=== PATIENT | male | born 1995 | race Caucasian/White ===

== ENCOUNTER 2020-02-13 12:43 | Emergency (ER) | payer OTHER, SELFPAY ==
--- NOTE | 2020-02-13 | XR_ITS ---
EXAMINATION: XR CHEST CLINICAL INFORMATION: Chest pain COMPARISON: Chest x-ray 05/22/2009 TECHNIQUE: 2 views of the chest were obtained. FINDINGS: Cardiac silhouette is normal in size. The lungs are well aerated. There is no lobar consolidation. No pleural effusion or pneumothorax. Ill-defined 1.2 cm nodular density projecting over the left midlung is nonspecific but most suggestive of atelectasis. No acute osseous abnormality. XR/XR chest 2V IMPRESSION: No acute pulmonary pathology. Suspected subtle left midlung atelectasis. Recommend follow-up imaging to ensure resolution.
--- NOTE | 2020-02-13 | ECG_ITS ---
Test Reason : CHEST PAIN Blood Pressure : / mmHG Vent. Rate : 086 BPM Atrial Rate : 086 BPM P-R Int : 140 ms QRS Dur : 086 ms QT Int : 350 ms P-R-T Axes : 029 000 014 degrees QTc Int : 418 ms Normal sinus rhythm Normal ECG When compared with ECG of 03-AUG-2015 15:54, No significant change was found Referred By: Generic ED Physician Electronically Signed By:MITCHELL SOLORZANO MD
[2020-02-13 14:10] VITALS: BP 141/82; PULSE 92; RESP 18; TEMP 36.6; O2SAT 97; BMI 45.9
[2020-02-13 14:32] LABS: MANUAL DIFF FLAG NO
[2020-02-13 14:35] LABS: Basophils Percent Auto 0.2 % (0-2); Eosinophils Absolute Auto 0.1 X10*3/uL (0.0-0.4); Hematocrit 53.8 % (42-52); Hemoglobin 17.7 g/dl (14.0-18.0); Imm Gran Abs Auto 0.03 X10*3/uL (0.00-0.03); Imm Gran Pct Auto 0.6 % (0.0-0.4); Lymphocytes Absolute Auto 1.3 X10*3/uL (1.2-4.9); Lymphocytes Percent Auto 27.7 % (20-40); Mean Corpuscular HGB Conc 32.9 g/dl (31.0-36.0); Mean Corpuscular Hemoglobin 26.5 pg (27.0-33.0); Mean Corpuscular Volume 80.4 fL (80-98); Mean Platelet Volume 10.4 fL (9.4-12.4); Monocytes Absolute Auto 0.5 X10*3/uL (0.1-1.2); Monocytes Percent Auto 9.6 % (2-11); Neutrophils Absolute Auto 2.9 X10*3/uL (2.0-8.3); Neutrophils Percent Auto 60.9 % (45-73); Platelet Count 212 X10*3/uL (160-400); Red Blood Count 6.69 X10*6/uL (4.60-5.80); Red Cell Distribution Width 14.5 % (11.0-16.0); White Blood Count 4.8 X10*3/uL (4.8-10.8)
[2020-02-13 14:54] LABS: Anion Gap 14 (12-20); Blood Urea Nitrogen 17 mg/dL (9-16); Calcium 8.9 mg/dL (8.4-10.2); Carbon Dioxide 25 mmol/L (22-29); Chloride 105 mmol/L (96-108); Estimated Glomerular Filt Rate > 60; Glucose Random 91 mg/dL (60-115); Potassium 4.5 mmol/l (3.3-5.1); Sodium 139 mmol/L (135-145)
[2020-02-13 15:01] LABS: Troponin-I High Sensitivity < 3.5 ng/L (<3.5-35.0)
--- NOTE | 2020-02-13 15:40 | ED.CHESTPAIN ---
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 Chest pain now is 2/10. Risk Factors Coronary artery disease risk factors: none Thoracic aortic dissection risk factors: none Related Data Allergies Allergy/AdvReac Type Severity Reaction Status Date / Time amoxicillin [AMOXICILLIN] Allergy Unknown HIVES Unverified 12/16/19 16:26 Review of Systems Review of Systems: All other systems are reviewed and are negative Constitutional: Reports as per HPI and Reports no additional constitutional complaints Eyes: Reports as per HPI and Reports no additional eye complaints Reports system reviewed and no additional complaints, except as documented Cardiovascular: Reports as per HPI and Reports no additional cardiovascular complaints Respiratory: Reports as per HPI and Reports no additional respiratory complaints Gastrointestinal: Reports as per HPI and Reports no additional gastrointestinal complaints Genitourinary: Reports no additional female genitourinary complaints Musculoskeletal: Reports no additional musculoskeletal complaints Skin/Breast: Reports system reviewed and no additional complaints, except as docu Psychiatric: Reports no additional psychiatric complaints Endocrine: Reports no additional endocrine complaints Hematologic/Lymphatic: Reports no additional hematologic/lymphatic complaints Allergic/Immunologic: Reports no additional allergic/immunologic complaints Reports system reviewed and no additional complaints, except as documented and Reports Abnormal speech present [facility] Past Medical History Medical History Asthma Social History Social History Alcohol intake: unknown Smoking Status: Former smoker Smoked in Last 30 Days: No Use of substances other than those prescribed or required for medical reasons: No Advance Directives: No Advance Directives Information Provided: No Physical Exam Vital Signs: Vital Signs: Last Vital Signs Temp 97.9 F 11/15/20 14:10 Pulse 92 02/13/20 14:10 Resp 18 02/13/20 14:10 BP 141/82 H 02/13/20 14:10 Pulse Ox 97 02/13/20 14:10 Body Mass Index 45.9 Vital signs have been reviewed as normal and appeared to be correct. Blood pressure normal. Heart rate normal. Respiration rate normal. Temperature normal. Oxygen saturation normal. Appearance: Alert. Oriented X3. No acute distress. Head: Normal external exam. Normocephalic. Atraumatic. No Rapp signs noted. No raccoon eyes noted Eyes: PERRLA. EOMI. Conjunctiva and sclera normal. Eyelids normal. ENT: EAC normal. TM's Normal. Pharynx normal. Uvula midline. Moist mucous membranes. No trismus noted. No drooling noted. No muffled voice noted. Neck: Normal inspection. Neck supple. FROM. No adenopathy. Thyroid Normal. No meningeal signs. No neck mass noted. CVS: Normal heart rate and rhythm. Heart sound normal. No murmurs noted. Pulses normal throughout. Respiratory: No respiratory distress. Painless inspiration. Breath sounds normal. No wheezes/rales/rhonchi noted. Chest nontender. No accessory muscle usage noted or decreased air movement noted. Abdomen: Soft and nontender. Bowel sounds normal in all 4 quadrants. No distention noted. No organomegaly noted. No visible injury noted. Back: No CVA tenderness. Full range of motion noted. Skin: Skin warm and dry. Normal skin color. Normal skin turgor. No rashes/lesions/lacerations noted. Extremities: No lower extremity edema. Extremities exhibit normal range of motion. Extremities nontender. Neuro: Oriented X 3. No motor deficit. No sensory deficit. Reflexes normal. MDM - Chest Pain MDM Narrative Medical decision making narrative: Assessment and plan. 24-year-old male presented with chest pain since 09:00 o'clock in the morning patient with HEART SCORE 0 negative troponin, patient also have no risk factor for PE patient has unremarkable chest x-ray. Pain appears to be muscular in origin. Will reassure the patient and discharge use NSAIDs if needed for pain. Lab Data Result diagrams: 02/13/20 14:26 02/13/20 14:26 Labs: Lab Results 11/15/20 11/15/20 11/15/20 Range/Units 14:26 14:26 14:26 WBC 4.8 (4.8-10.8) X10*3/uL RBC 6.69 H (4.60-5.80) X10*6/uL Hgb 17.7 (14.0-18.0) g/dl Hct 53.8 H (42-52) % MCV 80.4 (80-98) fL MCH 26.5 L (27.0-33.0) pg MCHC 32.9 (31.0-36.0) g/dl RDW 14.5 (11.0-16.0) % Plt Count 212 (160-400) X10*3/uL MPV 10.4 (9.4-12.4) fL Immature Gran % (Auto) 0.6 H (0.0-0.4) % Neut % (Auto) 60.9 (45-73) % Lymph % (Auto) 27.7 (20-40) % [place] % (Auto) 9.6 (2-11) % Eos % (Auto) 1.0 (0-4) % Baso % (Auto) 0.2 (0-2) % Lymph # (Auto) 1.3 (1.2-4.9) X10*3/uL [place] # (Auto) 0.5 (0.1-1.2) X10*3/uL Eos # (Auto) 0.1 (0.0-0.4) X10*3/uL Baso # (Auto) 0.0 (0.0-0.2) X10*3/uL Abs Immat Gran (auto) 0.03 (0.00-0.03) X10*3/uL Absolute Neuts (auto) 2.9 (2.0-8.3) X10*3/uL Absolute Nucleated RBC 0.000 (0.0-0.012) X10*3/uL Nucleated RBC % (auto) 0.0 (0.0-0.2) /100WBC Sodium 139 (135-145) mmol/L Potassium 4.5 (3.3-5.1) mmol/l Chloride 105 (96-108) mmol/L Carbon Dioxide 25 (22-29) mmol/L Anion Gap 14 (12-20) BUN 17 H (9-16) mg/dL Creatinine 0.98 (0.5-1.4) mg/dL Estim Creat Clear Calc 166.0 Estimated GFR > 60 Random Glucose 91 (60-115) mg/dL Calcium 8.9 (8.4-10.2) mg/dL Troponin I High Sens < 3.5 (<3.5-35.0) ng/L Imaging Data Chest x-ray: Radiologist's impression: No acute intrathoracic pathology. ECG Data ECG #1: Interpretation: Normal sinus rhythm at 86 beats per minutes, normal intervals, no ST-T ischemic changes. Discharge Plan Discharge Clinical Impression: Chest pain Patient Disposition: Home, Self-Care Instructions: Chest Pain (ED) Referrals: Maury Kennedy MD [Primary Care Provider] - 2 days
[2020-02-13 15:51] VITALS: BP 139/80; PULSE 77; RESP 12; TEMP 36.6; O2SAT 100
== END 2020-02-13 16:44 | disposition home or self-care (01) ==
PROVIDERS: Emergency Provider Emergency Medicine; PCP Internal Medicine Medical Oncology
DX: R07.9 Chest pain, unspecified (principal); Z87.891 Personal history of nicotine dependence
CPT/HCPCS: 36415; 71046; 80048; 84484; 85025; 93005; 99284

== ENCOUNTER 2020-03-02 08:05 | Outpatient (REF) | payer OTHER, SELFPAY ==
[2020-03-02 09:51] LABS: MANUAL DIFF FLAG NO
[2020-03-02 09:55] LABS: Basophils Percent Auto 0.3 % (0-2); Eosinophils Absolute Auto 0.2 X10*3/uL (0.0-0.4); Eosinophils Percent Auto 2.5 % (0-4); Hematocrit 49.7 % (42-52); Hemoglobin 16.3 g/dl (14.0-18.0); Imm Gran Abs Auto 0.01 X10*3/uL (0.00-0.03); Imm Gran Pct Auto 0.1 % (0.0-0.4); Lymphocytes Absolute Auto 2.8 X10*3/uL (1.2-4.9); Lymphocytes Percent Auto 41.1 % (20-40); Mean Corpuscular HGB Conc 32.8 g/dl (31.0-36.0); Mean Corpuscular Hemoglobin 26.7 pg (27.0-33.0); Mean Corpuscular Volume 81.3 fL (80-98); Mean Platelet Volume 10.7 fL (9.4-12.4); Monocytes Absolute Auto 0.5 X10*3/uL (0.1-1.2); Monocytes Percent Auto 7.7 % (2-11); Neutrophils Absolute Auto 3.3 X10*3/uL (2.0-8.3); Neutrophils Percent Auto 48.3 % (45-73); Platelet Count 298 X10*3/uL (160-400); Red Blood Count 6.11 X10*6/uL (4.60-5.80); Red Cell Distribution Width 14.2 % (11.0-16.0); White Blood Count 6.8 X10*3/uL (4.8-10.8)
[2020-03-02 10:29] LABS: Alanine Aminotransferase 30 U/L (0-40); Albumin Level 4.3 g/dL (3.5-5.0); Alkaline Phosphatase 74 U/L (39-117); Anion Gap 11 (12-20); Aspartate Amino Transferase 18 U/L (5-37); Bilirubin Total 0.5 mg/dL (0.0-1.0); Blood Urea Nitrogen 14 mg/dL (9-16); Calcium 9.2 mg/dL (8.4-10.2); Carbon Dioxide 29 mmol/L (22-29); Chloride 105 mmol/L (96-108); Cholesterol 128 mg/dL; Estimated Glomerular Filt Rate > 60; Glucose Fasting 90 mg/dL (60-99); HDL Cholesterol 35 mg/dL; LDL Cholesterol Calculated 75 mg/dl; Potassium 4.4 mmol/l (3.3-5.1); Sodium 141 mmol/L (135-145); Total Protein 7.4 g/dL (6.5-8.0); Triglycerides 90 mg/dL
[2020-03-02 10:43] LABS: HIV AB/AG Nonreactive (Nonreactive); HIV Num 1 0.21 S/CO (0.00-0.99)
[2020-03-02 10:50] LABS: Prostate Specific Antigen 0.18 ng/mL (<0.05-4.0)
[2020-03-03 04:05] LABS: Syphilis Screen Nonreactive (Nonreactive)
== END 2020-03-02 08:06 | disposition home or self-care (01) ==
LOC: HO.LAB 08:05
PROVIDERS: PCP Internal Medicine Medical Oncology; Visit Provider Internal Medicine Medical Oncology
DX: E66.01 Morbid (severe) obesity due to excess calories (principal); Z20.6 Contact with and (suspected) exposure to human immunodeficiency virus [HIV]; Z20.2 Contact with and (suspected) exposure to infections with a predominantly sexual mode of transmission; Z77.21 Contact with and (suspected) exposure to potentially hazardous body fluids
CPT/HCPCS: 36415; 80053; 80061; 84153; 85025; 86780; 87389

== ENCOUNTER 2020-08-03 08:36 | Outpatient (REF) | payer OTHER, SELFPAY ==
[2020-08-04 13:52] LABS: H Pylori Breath Test NOT DETECTED (NOT DETECTED)
== END 2020-08-03 08:37 | disposition home or self-care (01) ==
LOC: CF 08:36
PROVIDERS: PCP Internal Medicine Medical Oncology; Visit Provider Surgery
DX: Z01.818 Encounter for other preprocedural examination (principal); E66.01 Morbid (severe) obesity due to excess calories; Z68.42 Body mass index [BMI] 45.0-49.9, adult
CPT/HCPCS: 83013

== ENCOUNTER → 2020-08-15 08:15 | Outpatient (BNVA) | payer OTHER, SELFPAY | PROVIDERS: PCP Internal Medicine Medical Oncology; Visit Provider Surgery ==

== ENCOUNTER → 2020-08-31 09:00 | Outpatient (BNVA) | payer OTHER, SELFPAY | PROVIDERS: PCP Internal Medicine Medical Oncology; Visit Provider Dietitian, Registered | DX: E66.01 Morbid (severe) obesity due to excess calories (principal); Z68.42 Body mass index [BMI] 45.0-49.9, adult | CPT/HCPCS: 97802 ==

== ENCOUNTER 2020-09-01 12:33 | Outpatient (REF) | payer OTHER, SELFPAY ==
--- NOTE | ~2020-09-01 | XR_ITS ---
EXAMINATION: XR CHEST CLINICAL INFORMATION: Shortness of breath COMPARISON: 02/13/2020 TECHNIQUE: 2 views of the chest were obtained. FINDINGS: Normal symmetric lung volumes. No parenchymal consolidation. No pleural effusion. No pneumothorax. Cardiomediastinal silhouette and pulmonary vascularity are within normal limits. No acute osseous abnormalities. XR/XR chest 2V IMPRESSION: Unremarkable examination.
--- NOTE | 2020-09-01 12:58 | ECG_ITS ---
Test Reason : R06.02 SOB Blood Pressure : / mmHG Vent. Rate : 077 BPM Atrial Rate : 077 BPM P-R Int : 140 ms QRS Dur : 090 ms QT Int : 382 ms P-R-T Axes : 014 013 030 degrees QTc Int : 432 ms Normal sinus rhythm Normal ECG When compared with ECG of 13-FEB-2020 12:51, No significant change was found Referred By: Veronica Newton Electronically Signed By:Ancelmo Mast
[2020-09-01 14:19] LABS: MANUAL DIFF FLAG NO
[2020-09-01 14:30] LABS: Basophils Percent Auto 0.3 % (0-2); Eosinophils Absolute Auto 0.2 X10*3/uL (0.0-0.4); Eosinophils Percent Auto 2.8 % (0-4); Hematocrit 48.7 % (42-52); Hemoglobin 16.5 g/dl (14.0-18.0); Imm Gran Abs Auto 0.01 X10*3/uL (0.00-0.03); Imm Gran Pct Auto 0.2 % (0.0-0.4); Lymphocytes Absolute Auto 1.8 X10*3/uL (1.2-4.9); Lymphocytes Percent Auto 29.7 % (20-40); Mean Corpuscular HGB Conc 33.9 g/dl (31.0-36.0); Mean Corpuscular Volume 82.5 fL (80-98); Mean Platelet Volume 10.4 fL (9.4-12.4); Monocytes Absolute Auto 0.5 X10*3/uL (0.1-1.2); Neutrophils Absolute Auto 3.5 X10*3/uL (2.0-8.3); Platelet Count 235 X10*3/uL (160-400); Red Cell Distribution Width 14.6 % (11.0-16.0)
[2020-09-01 14:40] LABS: Estimated Average Glucose 68 mg/dL
[2020-09-01 14:58] LABS: Alanine Aminotransferase 39 U/L (0-40); Albumin Level 4.3 g/dL (3.5-5.0); Alkaline Phosphatase 70 U/L (39-117); Anion Gap 14 (12-20); Aspartate Amino Transferase 37 U/L (5-37); Bilirubin Total 0.8 mg/dL (0.0-1.0); Blood Urea Nitrogen 12 mg/dL (9-16); C Reactive Protein 0.88 mg/dL (< or = 0.50); Calcium 9.3 mg/dL (8.4-10.2); Carbon Dioxide 24 mmol/L (22-29); Chloride 107 mmol/L (96-108); Cholesterol 123 mg/dL; Estimated Glomerular Filt Rate > 60; Glucose Fasting 83 mg/dL (60-99); HDL Cholesterol 45 mg/dL; Iron 75 mcg/dL (45-160); LDL Cholesterol Calculated 64 mg/dl; Percent Iron Saturation 22 % (15-50); Potassium 4.3 mmol/L (3.3-5.1); Sodium 141 mmol/L (135-145); Total Iron Binding Capacity 336 mcg/dL (228-428); Total Protein 7.2 g/dL (6.5-8.0); Triglycerides 74 mg/dL; Unsaturated Iron Binding 261 ug/dL
[2020-09-01 15:00] LABS: Thyroid Stimulating Hormone 1.63 uIU/mL (0.32-4.0); Vitamin D 25-OH Total 12.5 ng/mL (>30)
[2020-09-01 15:11] LABS: Vitamin B12 346 pg/mL (200-900)
[2020-09-04 14:12] LABS: Calcium (PTHI) 9.5 mg/dL (8.6-10.3); PTHI 33 pg/mL (14-64)
[2020-09-05 06:17] LABS: Zinc 74 mcg/dL (60-130)
[2020-09-06 19:47] LABS: Vitamin A 32 mcg/dL (38-98); Vitamin B1 7 nmol/L (8-30)
== END 2020-09-01 12:34 | disposition home or self-care (01) ==
LOC: HO.XRAY 12:33
PROVIDERS: PCP Internal Medicine Medical Oncology; Visit Provider Surgery
DX: Z01.818 Encounter for other preprocedural examination (principal); K91.2 Postsurgical malabsorption, not elsewhere classified; R06.02 Shortness of breath; Z90.3 Acquired absence of stomach [part of]
CPT/HCPCS: 36415; 71046; 80053; 80061; 82306; 82607; 83036; 83540; 83970; 84425; 84443; 84590; 84630; 85025; 86140; 93005

== ENCOUNTER → 2020-09-14 09:07 | Outpatient (BNVA) | payer OTHER, SELFPAY | PROVIDERS: PCP Internal Medicine Medical Oncology; Visit Provider Physician Assistant ==

== ENCOUNTER → 2020-09-25 08:04 | Outpatient (BNVA) | payer OTHER, SELFPAY | PROVIDERS: PCP Internal Medicine Medical Oncology; Visit Provider Dietitian, Registered | DX: E66.01 Morbid (severe) obesity due to excess calories (principal); Z68.42 Body mass index [BMI] 45.0-49.9, adult | CPT/HCPCS: 97803 ==

== ENCOUNTER → 2020-10-23 08:10 | Outpatient (BNVA) | payer OTHER, SELFPAY | PROVIDERS: PCP Internal Medicine Medical Oncology; Visit Provider Dietitian, Registered | DX: E66.9 Obesity, unspecified (principal); Z68.42 Body mass index [BMI] 45.0-49.9, adult | CPT/HCPCS: 97803 ==

== ENCOUNTER 2021-10-29 09:20 | Outpatient (REF) | payer OTHER, SELFPAY ==
[2021-10-29 09:47] LABS: MANUAL DIFF FLAG NO
[2021-10-29 10:38] LABS: Basophils Percent Auto 0.3 % (0-2); Eosinophils Absolute Auto 0.2 X10*3/uL (0.0-0.4); Eosinophils Percent Auto 2.5 % (0-4); Hematocrit 50.1 % (42.0-52.0); Hemoglobin 16.4 g/dl (14.0-18.0); Imm Gran Abs Auto 0.02 X10*3/uL (0.00-0.03); Imm Gran Pct Auto 0.3 % (0.0-0.4); Lymphocytes Absolute Auto 1.9 X10*3/uL (1.2-4.9); Lymphocytes Percent Auto 31.2 % (20-40); Mean Corpuscular HGB Conc 32.7 g/dl (31.0-36.0); Mean Corpuscular Hemoglobin 26.9 pg (27.0-33.0); Mean Corpuscular Volume 82.1 fL (80.0-98.0); Mean Platelet Volume 10.1 fL (9.4-12.4); Monocytes Absolute Auto 0.6 X10*3/uL (0.1-1.2); Monocytes Percent Auto 10.2 % (2-11); Neutrophils Absolute Auto 3.3 x10*3/uL (2.0-8.3); Neutrophils Percent Auto 55.5 % (45-73); Platelet Count 246 X10*3/uL (160-400); Red Cell Distribution Width 14.4 % (11.0-16.0)
[2021-10-29 11:02] LABS: Alanine Aminotransferase 35 U/L (0-40); Albumin Level 4.1 g/dL (3.5-5.0); Alkaline Phosphatase 64 U/L (39-117); Anion Gap 15 (12-20); Aspartate Amino Transferase 22 U/L (5-37); Bilirubin Total 0.4 mg/dL (0.0-1.0); Blood Urea Nitrogen 14 mg/dL (9-16); Calcium 8.8 mg/dL (8.4-10.2); Carbon Dioxide 24 mmol/L (22-29); Chloride 105 mmol/L (96-108); Estimated Glomerular Filt Rate > 60; Glucose Random 91 mg/dL (60-115); Potassium 4.5 mmol/L (3.3-5.1); Sodium 139 mmol/L (135-145); Total Protein 7.1 g/dL (6.5-8.0)
[2021-10-29 11:14] LABS: HBS Num1 12.35 mIU/mL (0-7.99); HBc Num1 0.11 S/CO (0.00-0.79); HBsAGNum1 0.24 S/CO (0.00-0.99); HIV AB/AG Nonreactive (Nonreactive); HIV Num 1 0.06 S/CO (0.00-0.99); Hepatitis B Core Antibody Nonreactive (Nonreactive); Hepatitis B Surface Antigen Negative (Negative); ~HepC Num1 0.09 S/CO (0.00-0.79); ~Hepatitis B Surface Antibody REACTIVE (Nonreactive); ~Hepatitis C Antibody Nonreactive (Nonreactive)
[2021-10-31 05:29] LABS: Hepatitis A Antibody IgM 0.17 Index (0-0.79); ~Hepatitis A Antibody IgM Nonreactive (Nonreactive)
== END 2021-10-29 09:21 | disposition home or self-care (01) ==
LOC: HO.LAB 09:20
PROVIDERS: PCP Internal Medicine Medical Oncology; Visit Provider Internal Medicine Medical Oncology
DX: Z11.4 Encounter for screening for human immunodeficiency virus [HIV] (principal); J45.909 Unspecified asthma, uncomplicated; R76.8 Other specified abnormal immunological findings in serum; Z20.6 Contact with and (suspected) exposure to human immunodeficiency virus [HIV]; Z77.21 Contact with and (suspected) exposure to potentially hazardous body fluids
CPT/HCPCS: 36415; 80053; 85025; 86704; 86706; 86709; 86803; 87340; 87389

== ENCOUNTER → 2023-08-04 08:58 | Outpatient (BNVA) | payer OTHER, SELFPAY | PROVIDERS: PCP Internal Medicine Medical Oncology; Visit Provider Physician Assistant Surgical ==

== ENCOUNTER 2023-09-26 08:57 | Outpatient (AMB) | payer OTHER, SELFPAY ==
--- NOTE | 2023-09-26 08:59 | MHC.OFFVISWM ---
VS Expanded 09/26/23 09:09 Height 5 ft 10 in Weight 336 lb BMI 48.2 Body Fat % 41.4 Body Fat Mass 139.2 Fat Free Mass 196.8 Visceral Fat Rating 25 Body Water % 43.5 Body Water Mass 146.2 Basal Metabolic Rate/Score 2,846 Intake Visit Reasons: TV Re-Est SWL BMI 48.2 *SEE COMMENTS* Allergies shellfish derived Allergy (Severe, Verified 09/26/23 08:59) Anaphylaxis amoxicillin [AMOXICILLIN] Allergy (Unknown, Verified 09/26/23 08:59) HIVES Medication List - Last Reconciled 09/26/23 by Charles Shore MD albuterol sulfate 90 mcg/actuation 2 puffs inhalation Q6H PRN dextroamphetamine-amphetamine 20 mg (Adderall) 20 mg PO BID emtricitabine-tenofovir (TDF) 200-300 mg (Truvada) 1 tab PO DAILY fexofenadine (Imelda Allergy) 180 mg PO DAILY lamotrigine 100 mg PO DAILY lurasidone (Latuda) 20 mg PO DAILY HPI HPI TV Re-Est SWL BMI 48.2 *SEE COMMENTS*: Details: Start time: 8.51am, End time: 9.31am ?I spent 35 minutes speaking with the patient on the phone plus an additional 5 minutes reviewing and updating records for a total of 40 minutes HPI Comments Details: Previous weight loss efforts: [facility] Wakes up: 6am or 10am, Sleeps: 11pm Breakfast: skips Lunch: 12pm (fast food) Dinner: 6-7pm (protein) Snacks: skips Exercise: none Fluids: Coffee/Tea: none, soda: (Coke or Sprite), juice: daily , ETOH: 1/month [facility] Medical History (Updated 09/26/23 @ 09:09 by Charles Shore MD) DJD (degenerative joint disease) Sleep apnea with use of continuous positive airway pressure (CPAP) Morbid obesity Depression Anxiety Bipolar disorder Asthma Surgical History Hx of wisdom tooth extraction Family History Mother No problems noted. Father Hypertension Obesity Brother No problems noted. Brother No problems noted. Brother No problems noted. Brother Obesity Sister Obesity Sister No problems noted. Sister No problems noted. Social History (Updated 08/04/23 @ 09:07 by Addie Miranda CMA) Alcohol intake: current Alcohol intake frequency: holidays/special occasions only Patient Tobacco Use Status: Never used Tobacco Telehealth Telehealth Telehealth Platform: Telephone Location of provider rendering services: practice address Location of patient: address on file Patient Identification confirmed using: Name, : Yes Telehealth method: voice only Patient verbally consented to treatment: Yes Patient verbally consented to billing insurance company: Yes Patient informed of any privacy concerns related to visit: Yes Minutes spent on Phone/Video with Pt.: 40 Assessment & Plan Assessment & Plan (1) Morbid obesity: Code(s): E66.01 - Morbid (severe) obesity due to excess calories Category: Medical Plan: 1.? Plan for lap sleeve gastrectomy. If diaphragmatic or ventral hernias are present at time of surgery, these will be repaired laparoscopically as well. Risks and complications include possible conversion to an open procedure, anastomotic leak, bleeding requiring transfusion, small bowel obstruction, , DVT and pulmonary embolism, cardiac, or pulmonary complications, as senior care complications such as anastomotic ulcer, insufficient weight loss and vitamin deficiencies. I emphasized the importance of close follow-up, adherence to instructions and good communication. 2. You will receive a link of our software taiwo to generate an individualized nutritional and exercise plan specific for you. Please send me a screenshot of the plans you will generate Meal to include lean meat (beef, fish, pork, turkey, chicken), or american yogurt, or egg whites, or beans with a salad with olive oil and fruits (berries, pears, apples, kiwi). Avoid salt, breads, potatoes, rice, pasta, desserts. ?3. If you choose shakes, each shake would be drunk slowly, like coffee in a period of 2 hours. ?4. If you choose bars, cut each bar in 4 pieces and eat each piece in 30min ?to make each bar last 2 hours. ?5. I emphasized the importance of measuring accurately the food portion and measure it when serving the food in plate ?6. The meal portions include a specific number of forks of meat and salad. You always eat the meat portion but you can replace up to half of salad/vegetables portion with rice, potatoes or pasta, or a fruit ?if you like. The less you do it the better weight loss will be. ?7. One full-size fork is what it can be scooped on the fork without falling aside and not what can be bit with the fork. Use regular forks like those you find in a typical restaurant. ?8.? Please send me weight measurements as soon as possible and then once a week. Always include your diet and exercise plan. 9. The best choice would be to purchase a stationary bike, elliptical or treadmill at home that can track calories. Let me know if you do so I can give you an exercise plan. ?10. Goal is to lose at least 1.5-2lbs per week ?11. Goal to lose 10% of your weight before surgery, which is about 33lbs. Ultimate weight goal: 303lbs before surgery 12. Please follow the diet plan exactly without any change. If you don't like something about the plan or you feel hungry you need to communicate with me so I can help you revise the plan. You should not change the plan yourself. 13. To be scheduled for EGD to assess the anatomy of the stomach. The possibility of biopsies was discussed. Patient needs to avoid use of NSAIDs and aspirin for 1 week prior to EGD. Risks of perforation and? bleeding was discussed with the patient. This will be an outpatient procedure with IV sedation. Orders: Orders Insulin Today E66.01 - Morbid (severe) obesity due to excess calories, G47.30 - Sleep apnea, unspecified, J45.909 - Unspecified asthma, uncomplicated Hemoglobin A1c Today E66.01 - Morbid (severe) obesity due to excess calories, G47.30 - Sleep apnea, unspecified, J45.909 - Unspecified asthma, uncomplicated C Reactive Protein Today E66.01 - Morbid (severe) obesity due to excess calories, G47.30 - Sleep apnea, unspecified, J45.909 - Unspecified asthma, uncomplicated Vitamin B1 Today E66.01 - Morbid (severe) obesity due to excess calories, G47.30 - Sleep apnea, unspecified, J45.909 - Unspecified asthma, uncomplicated TSH reflex Free T4 Today E66.01 - Morbid (severe) obesity due to excess calories, G47.30 - Sleep apnea, unspecified, J45.909 - Unspecified asthma, uncomplicated Vitamin D 25-OH Total Today E66.01 - Morbid (severe) obesity due to excess calories, G47.30 - Sleep apnea, unspecified, J45.909 - Unspecified asthma, uncomplicated ECG 12 lead EKG Today E66.01 - Morbid (severe) obesity due to excess calories, G47.30 - Sleep apnea, unspecified, J45.909 - Unspecified asthma, uncomplicated FL upper GI w air Today E66.01 - Morbid (severe) obesity due to excess calories, G47.30 - Sleep apnea, unspecified, J45.909 - Unspecified asthma, uncomplicated H Pylori Breath Test Today E66.01 - Morbid (severe) obesity due to excess calories, G47.30 - Sleep apnea, unspecified, J45.909 - Unspecified asthma, uncomplicated Complete Blood Count Auto Diff Today E66.01 - Morbid (severe) obesity due to excess calories, G47.30 - Sleep apnea, unspecified, J45.909 - Unspecified asthma, uncomplicated Lipid Panel Today E66.01 - Morbid (severe) obesity due to excess calories, G47.30 - Sleep apnea, unspecified, J45.909 - Unspecified asthma, uncomplicated IRON PROFILE Today E66.01 - Morbid (severe) obesity due to excess calories, G47.30 - Sleep apnea, unspecified, J45.909 - Unspecified asthma, uncomplicated Comprehensive Met. Panel Today E66.01 - Morbid (severe) obesity due to excess calories, G47.30 - Sleep apnea, unspecified, J45.909 - Unspecified asthma, uncomplicated Vitamin B12 and Folate Today E66.01 - Morbid (severe) obesity due to excess calories, G47.30 - Sleep apnea, unspecified, J45.909 - Unspecified asthma, uncomplicated Zinc Today E66.01 - Morbid (severe) obesity due to excess calories, G47.30 - Sleep apnea, unspecified, J45.909 - Unspecified asthma, uncomplicated Vitamin A Today E66.01 - Morbid (severe) obesity due to excess calories, G47.30 - Sleep apnea, unspecified, J45.909 - Unspecified asthma, uncomplicated Ferritin Today E66.01 - Morbid (severe) obesity due to excess calories, G47.30 - Sleep apnea, unspecified, J45.909 - Unspecified asthma, uncomplicated US abdomen comp w elastography Today E66.01 - Morbid (severe) obesity due to excess calories, G47.30 - Sleep apnea, unspecified, J45.909 - Unspecified asthma, uncomplicated XR chest 2V Today E66.01 - Morbid (severe) obesity due to excess calories, G47.30 - Sleep apnea, unspecified, J45.909 - Unspecified asthma, uncomplicated Referrals Nutrition/Dietitian Referral E66.01 - Morbid (severe) obesity due to excess calories, G47.30 - Sleep apnea, unspecified, J45.909 - Unspecified asthma, uncomplicated Behavioral Health Referral E66.01 - Morbid (severe) obesity due to excess calories, G47.30 - Sleep apnea, unspecified, J45.909 - Unspecified asthma, uncomplicated
[2023-09-26 09:09] VITALS: BMI 48.2
== END 2023-09-26 09:31 | disposition home or self-care (01) ==
LOC: HO.HBS 08:57
PROVIDERS: PCP Internal Medicine Medical Oncology; Visit Provider Surgery
DX: E66.01 Morbid (severe) obesity due to excess calories (principal); Z68.42 Body mass index [BMI] 45.0-49.9, adult
CPT/HCPCS: 99204

== ENCOUNTER → 2023-09-26 08:57 | Outpatient (BNVA) | payer OTHER, SELFPAY | PROVIDERS: PCP Internal Medicine Medical Oncology; Visit Provider Surgery ==

== ENCOUNTER 2023-10-06 10:24 | Outpatient (REF) | payer OTHER, SELFPAY ==
--- NOTE | ~2023-10-06 | XR_ITS ---
EXAMINATION: XR CHEST CLINICAL INFORMATION: Morbid, severe obesity due to excess calories. COMPARISON: 09/01/2020. TECHNIQUE: 2 views of the chest. FINDINGS: Dextroscoliosis of the thoracic spine. Heart size is normal. There is no gross pneumothorax. No pleural effusion. No focal consolidation. XR/XR chest 2V IMPRESSION: No evidence of pneumonia.
--- NOTE | 2023-10-06 10:29 | ECG_ITS ---
Test Reason : E66.01 - Morbid (severe) obesity due to excess calories Blood Pressure : / mmHG Vent. Rate : 071 BPM Atrial Rate : 071 BPM P-R Int : 158 ms QRS Dur : 088 ms QT Int : 396 ms P-R-T Axes : 010 -04 005 degrees QTc Int : 430 ms Normal sinus rhythm Normal ECG When compared with ECG of 01-SEP-2020 13:08, No significant change was found Referred By: Charles Shore Electronically Signed By:Ancelmo Mast
[2023-10-06 10:55] LABS: MANUAL DIFF FLAG NO
[2023-10-06 11:58] LABS: Basophils Percent Auto 0.3 % (0-2); Eosinophils Absolute Auto 0.1 X10*3/uL (0.0-0.4); Eosinophils Percent Auto 0.6 % (0-4); Hematocrit 54.3 % (42.0-52.0); Imm Gran Abs Auto 0.02 X10*3/uL (0.00-0.03); Imm Gran Pct Auto 0.2 % (0.0-0.4); Lymphocytes Absolute Auto 2.2 X10*3/uL (1.2-4.9); Lymphocytes Percent Auto 22.2 % (20-40); Mean Corpuscular HGB Conc 33.1 g/dl (31.0-36.0); Mean Corpuscular Hemoglobin 27.2 pg (27.0-33.0); Mean Platelet Volume 10.1 fL (9.4-12.4); Monocytes Absolute Auto 0.5 X10*3/uL (0.1-1.2); Monocytes Percent Auto 4.9 % (2-11); Neutrophils Absolute Auto 7.3 x10*3/uL (2.0-8.3); Neutrophils Percent Auto 71.8 % (45-73); Platelet Count 263 X10*3/uL (160-400); Red Blood Count 6.62 X10*6/uL (4.60-5.80); Red Cell Distribution Width 15.5 % (11.0-16.0); White Blood Count 10.1 X10*3/uL (4.8-10.8)
[2023-10-06 12:12] LABS: Estimated Average Glucose 71 mg/dL; Hemoglobin A1c % 4.1 % (<6.0)
[2023-10-06 12:44] LABS: Alanine Aminotransferase 37 U/L (0-40); Albumin Level 4.3 g/dL (3.5-5.0); Alkaline Phosphatase 63 U/L (39-117); Anion Gap 15 (12-20); Aspartate Amino Transferase 22 U/L (5-37); Bilirubin Total 0.8 mg/dL (0.0-1.0); Blood Urea Nitrogen 15 mg/dL (9-16); C Reactive Protein 0.21 mg/dL (< or = 0.50); Calcium 9.6 mg/dL (8.4-10.2); Carbon Dioxide 25 mmol/L (22-29); Chloride 103 mmol/L (96-108); Cholesterol 168 mg/dL (<200); Estimated Glomerular Filt Rate > 60; Glucose Random 87 mg/dL (60-115); HDL Cholesterol 52 mg/dL (>40); Iron 54 mcg/dL (45-160); LDL Cholesterol Calculated 105 mg/dL (<100); Percent Iron Saturation 17 % (15-50); Potassium 3.9 mmol/L (3.3-5.1); Sodium 139 mmol/L (135-145); Total Iron Binding Capacity 322 mcg/dL (228-428); Total Protein 8.2 g/dL (6.5-8.0); Triglycerides 59 mg/dL (<150); Unsaturated Iron Binding 268 ug/dL
[2023-10-06 13:05] LABS: Ferritin 172 ng/mL (20-250); TSH reflex Free T4 1.19 uIU/mL (0.32-4.0); Vitamin D 25-OH Total 12.2 ng/mL (>30)
[2023-10-06 13:07] LABS: Folate 4.4 ng/mL (> or = 4.0); Vitamin B12 1016 pg/mL (200-900)
[2023-10-06 13:24] LABS: Insulin 16 uU/mL (2-29)
[2023-10-09 02:49] LABS: Zinc 63 mcg/dL (60-130)
[2023-10-09 05:04] LABS: Vitamin A 39 mcg/dL (38-98)
[2023-10-10 15:33] LABS: Vitamin B1 9 nmol/L (8-30)
== END 2023-10-06 10:25 | disposition home or self-care (01) ==
LOC: HO.XRAY 10:24
PROVIDERS: PCP Internal Medicine Medical Oncology; Visit Provider Surgery
DX: E66.01 Morbid (severe) obesity due to excess calories (principal); G47.30 Sleep apnea, unspecified; J45.909 Unspecified asthma, uncomplicated; Z13.1 Encounter for screening for diabetes mellitus; Z13.89 Encounter for screening for other disorder
CPT/HCPCS: 36415; 71046; 80053; 80061; 82306; 82607; 82728; 82746; 83036; 83525; 83540; 84425; 84443; 84590; 84630; 85025; 86140; 93005

== ENCOUNTER → 2023-10-06 10:29 | Outpatient (BNV) | payer OTHER, SELFPAY | PROVIDERS: PCP Internal Medicine Medical Oncology; Visit Provider Internal Medicine Cardiovascular Disease | DX: E66.01 Morbid (severe) obesity due to excess calories (principal) | CPT/HCPCS: 93010 ==

== ENCOUNTER 2023-11-05 09:08 | Outpatient (AMB) | payer OTHER, SELFPAY ==
--- NOTE | 2023-11-05 09:08 | MHC.WMTHER ---
Intake Intake Visit Reasons: TV BH Intake Allergies shellfish derived Allergy (Severe, Verified 09/26/23 08:59) Anaphylaxis amoxicillin [AMOXICILLIN] Allergy (Unknown, Verified 09/26/23 08:59) HIVES [facility] Medical History (Updated 09/26/23 @ 09:09 by Charles Shore MD) DJD (degenerative joint disease) Sleep apnea with use of continuous positive airway pressure (CPAP) Morbid obesity Depression Anxiety Bipolar disorder Asthma Surgical History Hx of wisdom tooth extraction Family History Mother No problems noted. Father Hypertension Obesity Brother No problems noted. Brother No problems noted. Brother No problems noted. Brother Obesity Sister Obesity Sister No problems noted. Sister No problems noted. Social History (Updated 08/04/23 @ 09:07 by Addie Miranda CMA) Alcohol intake: current Alcohol intake frequency: holidays/special occasions only Patient Tobacco Use Status: Never used Tobacco Behavioral Health Assessment Weight Management Therapy Therapy Notes Details PT is a 28 year old Male who presents for BH intake as part of surgical weight loss program. Presenting Concerns Referral Source PT was referred to [facility] by his PCP. PT sees Dr. Puente at the program and had initial visit on August/2023. Reason for referral Completion of behavioral health assessment as part of process for weight-loss surgery. 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 No Satisfied with current living situation? Yes Comments Pt lives alone. Food/Weight/Diet Expectations of change PT wishes to be active, he noticing his body is hurting form being big. Anything close to 200 is fine with him. History/Relationship with food PT reports he is an emotional emoting, he binge eats and find a comfort with food. Patient reports his triggers are work-stress, feeling overwhelm, then food is to distract him from the stressor. PT states he is trying hard to stick to the meal plan provided by the doctor, however he has a hard time with consistency as he's used to not eat trough the day and then have a big meal. He has never been a breakfast eater person. Examples of meals before starting the program. Breakfast: skip. Lunch: berries or any take out at work ([employer], [employer]) Dinner: Mostly take out (fast food). Denies any snacks but drinks soda. Currently 2Lt in a day/regular soda. History/Relationship with weight PT states he has always been big. Coming from a [place] family, meals were -style with multiple carbs in a meal. Also, being chubby was related to how healthy people are. In last 5 years his lowest weight has been 270Lbs and the highest 360Lbs. Currently is 340Lbs. Doesn't remember when he was under 200Lbs. At 9 years old he was already over 200Lbs. The whole father's family side are big. Mom is overweight but father is big. History/Relationship with dieting Gym membership, did [employer] at the beginning of the year but got very sick so had to stop. [facility]- in 2020. Multiple diets, fasting, make himself trowing up. Binge Eating Do you frequently eat large amounts of food in short periods of time, not feeling physically hungry? Yes Do you feel out of control when you eat a large amount of food in a short period of time? Yes Do you eat large amounts of food rapidly and typically alone? Yes Night Eating Do you wake up at least once during the night to eat? No If you wake up in the night, do you find that it is necessary to eat something in order to fall back asleep? No Do you have little or no appetite in the morning and feel very hungry in the evening, often overeating between dinner and when you go to bed? No Social History Family history and relationship PT is single, never . 7 half siblings. He's not very close to his family. Relationship with his father is improving but not the best now with his mother. He's close to his maternal great-grandparents Parental/Familial wallpaper scraper obligations None. Developmental history and status Growing up he has learning issues but never got support as he found the answers to his academic issues later in life. Social support couple close friends, an aunt who went trough the program. Community support PCP, therapist. Quaker/Spirituality Family was Alevism but wasn't huge part of his life. None. Cultural/Ethnic information [place] heritage. Born and raised in [place]. Pt is bilingual. Legal Involvement and History Current or historical involvement with the legal system? None reported. Education Highest grade completed Associates degree in emergency medical services. Preferred learning style Verbal and Learn by doing Currently enrolled in educational program? Yes (Finishing his bachelors in healthcare administration. Will be done early 2024.) Interested in further educational program? Yes (Thinking in pursue a MARK.) Educational Interests/Skills Will like to continue in healthcare system. 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 ) Wants help to find employment? No Meaningful activities Ride motorcycle, hang out with friends. Mental Health and Addiction Treatment Psychiatric history PT reports he has a therapist. Has social-anxiety symptoms. This part will be assesed in next session. Assessment & Plan Assessment & Plan (1) Anxiety disorder, unspecified: Code(s): F41.9 - Anxiety disorder, unspecified Plan: PT will be seen again on 11/23 to finish assessment. Not cleared today. Telehealth Telehealth Telehealth Platform: [facility] Location of provider rendering services: other Location of patient: address on file Patient Identification confirmed using: Name, : Yes Telehealth method: video Patient verbally consented to treatment: Yes Patient verbally consented to billing insurance company: Yes Patient informed of any privacy concerns related to visit: No Minutes spent on Phone/Video with Pt.: 55 (9:00 - 9:55am) Coding Level of Care Code New Pt Tele Psy [place] ([id number]) Patient Type New Diagnoses Anxiety disorder, unspecified F41.9 Time Spent (min) 55 Comment 9:00 - 9:55am
== END 2023-11-05 09:58 | disposition home or self-care (01) ==
PROVIDERS: PCP Internal Medicine Medical Oncology; Visit Provider Counselor Mental Health
DX: F41.9 Anxiety disorder, unspecified (principal)
CPT/HCPCS: 90791

== ENCOUNTER → 2023-11-05 09:08 | Outpatient (BNVA) | payer OTHER, SELFPAY | PROVIDERS: PCP Internal Medicine Medical Oncology; Visit Provider Counselor Mental Health ==

== ENCOUNTER → 2023-12-03 09:47 | Day surgery (SDC) | payer OTHER, SELFPAY ==
--- NOTE | 2023-11-28 14:26 | HO.ANESPROP2 ---
HPI - Anesthesia Eval Consult details Narrative: 28yo M for Upper Endoscopy [facility] Active Problems Active Problems: All Active Problems Asthma (Acute) DJD (degenerative joint disease) (Acute) Sleep apnea with use of continuous positive airway pressure (CPAP) (Acute) Morbid obesity (Acute) Binge eating disorder (Acute) Bipolar 2 disorder, major depressive episode (Acute) Vitamin B1 deficiency (Acute) Vitamin A deficiency (Acute) Vitamin D deficiency (Acute) Morbid obesity due to excess calories (Acute) BMI 45.0-49.9, adult (Acute) Preoperative examination (Acute) Shortness of breath (Acute) Past Medical History Medical History (Updated 09/26/23 @ 09:09 by Charles Shore MD) DJD (degenerative joint disease) Sleep apnea with use of continuous positive airway pressure (CPAP) Morbid obesity Depression Anxiety Bipolar disorder Asthma Family History Family History Mother No problems noted. Father Hypertension Obesity Brother No problems noted. Brother No problems noted. Brother No problems noted. Brother Obesity Sister Obesity Sister No problems noted. Sister No problems noted. Surgical History Surgical History Hx of wisdom tooth extraction Social History Social History (Updated 08/04/23 @ 09:07 by Addie Miranda CMA) Alcohol intake: current Alcohol intake frequency: holidays/special occasions only Patient Tobacco Use Status: Never used Tobacco Meds Allergies Allergy/AdvReac Type Severity Reaction Status Date / Time shellfish derived Allergy Severe Anaphylaxis Verified 09/26/23 08:59 amoxicillin [AMOXICILLIN] Allergy Unknown HIVES Verified 09/26/23 08:59 Home Medications ?Medication ?Instructions ?Recorded ?Confirmed ?Last Taken ?Type lamotrigine 100 mg tablet 100 mg PO DAILY 09/25/20 09/26/23 Unknown History lurasidone 20 mg tablet (Latuda) 20 mg PO DAILY 08/04/23 Unknown History emtricitabine 200 mg-tenofovir 1 tab PO DAILY 09/22/23 09/26/23 Unknown History disoproxil fumarate 300 mg tablet (Truvada) albuterol sulfate 90 mcg/actuation 2 puff inhalation Q6H PRN 09/26/23 09/26/23 Unknown History aerosol inhaler dextroamphetamine-amphetamine 20 20 mg PO BID 09/26/23 09/26/23 Unknown History mg tablet (Adderall) fexofenadine 180 mg tablet 180 mg PO DAILY 09/26/23 09/26/23 Unknown History (Imelda Allergy) Assessment and Plan Assessment Anesthesia Assessment: Chart Reviewed
--- NOTE | 2023-12-03 13:26 | PC.NURSE ---
This sheet writer went to bring pt into pre-op area. Pt not in waiting room. Attempted to call pt with no answer. Team notified of pt departure.
== END ==
LOC: HO.SSS 09:48
PROVIDERS: PCP Internal Medicine Medical Oncology; Visit Provider Surgery
DX: E66.01 Morbid (severe) obesity due to excess calories (principal); Z68.42 Body mass index [BMI] 45.0-49.9, adult; Z53.29 Procedure and treatment not carried out because of patient's decision for other reasons

== ENCOUNTER 2023-12-05 08:54 | Outpatient (REF) | payer OTHER, SELFPAY ==
--- NOTE | ~2023-12-05 | FL_ITS ---
EXAMINATION: XR FLUOROSCOPY UPPER GI WITH AIR CLINICAL INFORMATION: Preoperative evaluation prior to bariatric surgery COMPARISON: None TECHNIQUE: Fluoroscopic air contrast upper GI examination was performed utilizing standard techniques with thin and thick barium and effervescent granules. Numerous spot images were obtained. FINDINGS: Dual and single contrast images of the esophagus demonstrate normal caliber, contour, and mucosal pattern. No evidence of stricture, mass, or ulcerations identified. Esophageal peristalsis was normal. No evidence of hiatus hernia identified. No significant gastroesophageal reflux was seen during the course of the examination and on reflux views. Dual contrast and single contrast images of the stomach demonstrated a normal contour. Evaluation of the gastric mucosa is somewhat limited due to poor coating of the barium. No obvious masses or ulcerations are seen. Contrast freely passed into the gastric antrum and duodenal bulb without delay. Single and air-contrast images of the duodenal bulb demonstrate no abnormality. The duodenal sweep has a normal appearance, course, and mucosal fold appearance. The imaged proximal jejunum has a normal fold pattern and caliber. FLUOROSCOPY TIME: 2 minutes 29 seconds Number of Spot Images: 7 Number of Cine: 10 DOSE AREA PRODUCT: 1946 uGy-m2 (microgray-meter squared) FL/FL upper GI w air IMPRESSION: 1. Limited evaluation of the gastric mucosa due to poor coating of barium. No obvious masses or ulcerations are seen. Otherwise unremarkable examination. This procedure was performed by Jacinto Hansen PA-C, and supervised by Dr. Horn Electronically signed by: Kehinde Horn MD 12/05/2023 03:53 PM EDT
== END 2023-12-05 08:55 | disposition home or self-care (01) ==
LOC: HO.XRAY 08:54
PROVIDERS: PCP Internal Medicine Medical Oncology; Visit Provider Surgery
DX: E66.01 Morbid (severe) obesity due to excess calories (principal); J45.909 Unspecified asthma, uncomplicated; G47.30 Sleep apnea, unspecified
CPT/HCPCS: 74246

== ENCOUNTER → 2023-12-05 08:56 | Outpatient (BNV) | payer OTHER, SELFPAY | PROVIDERS: PCP Internal Medicine Medical Oncology; Visit Provider Radiology Diagnostic Radiology | DX: Z01.818 Encounter for other preprocedural examination (principal) | CPT/HCPCS: 74246 ==

== ENCOUNTER 2023-12-10 08:59 | Outpatient (REF) | payer OTHER, SELFPAY ==
--- NOTE | ~2023-12-10 | US_ITS ---
EXAMINATION: US COMPLETE ABDOMEN WITH LIVER ELASTOGRAPHY CLINICAL INFORMATION: Morbid obesity. COMPARISON: None available. TECHNIQUE: Real-time imaging of the abdominal viscera. Noninvasive ultrasound liver fibrosis assessment is performed using Andrei ElastPQ point quantification shear wave elastography (pSWE) with a C5-2 MHz transducer. Multiple elastography samples are obtained. FINDINGS: PANCREAS: The pancreas was essentially not evaluated as it was obscured by bowel gas. ABDOMINAL AORTA: The proximal and distal aortic segments are normal in caliber. Abdominal aorta was obscured by bowel gas. INFERIOR VENA CAVA: Visualized portions are normal. LIVER: The liver demonstrates normal size and contour with slightly increased echogenicity suggesting steatosis. No focal lesion or intrahepatic biliary duct dilatation. The right lobe measures 15.2 cm in length. The left lobe measures 12.3 cm in length. Portal flow is towards the liver (hepatopetal). Shear wave liver elastography median stiffness is 1.38 m/s (reference; normal median stiffness is 1.3 m/s or less). IQR/median stiffness to assess sampling precision is 0.14 (reference; good quality data set is IQR/median stiffness of 0.15 or less). GALLBLADDER: The gallbladder is physiologically distended without evidence of stones, sludge, polyps, wall thickening or pericholecystic fluid. COMMON BILE DUCT: Normal in caliber measuring 0.2 cm in diameter. RIGHT KIDNEY: Normal. No hydronephrosis. No renal calculi or focal parenchymal lesions. The kidney measures 12.0 cm in maximum dimension. LEFT KIDNEY: The lower pole was obscured by bowel gas. No hydronephrosis. No renal calculi or focal parenchymal lesions. The kidney measures 11.3 cm in maximum dimension. SPLEEN: Normal. The spleen measures 10.6 cm in maximum dimension. FREE FLUID: None. US/US abdomen comp w elastography IMPRESSION: 1. Borderline increased echogenicity suggesting steatosis. 2. Liver Elastography: In the absence of other known clinical signs, measurements rule out compensated advanced chronic liver disease. If there are known clinical signs, further testing may be needed for confirmation. REFERENCE: Society of Radiologists in Ultrasound Liver Stiffness Thresholds (2020): LIVER STIFFNESS THRESHOLDS: *Liver Stiffness equal or less than 1.3 m/s: High probability of being normal. *Liver Stiffness less than 1.7 m/s: In the absence of other known clinical signs, rules out compensated advanced chronic liver disease. *Liver Stiffness 1.7-2.1 m/s: Suggestive of compensated advanced chronic liver disease but need further test for confirmation. *Liver Stiffness over 2.1 m/s: Rules in compensated advanced chronic liver disease. *Liver Stiffness over 2.4 m/s: Suggestive of clinically significant portal hypertension. QUALITY OF DATA SET: *IQR/Median value equal or less than 0.15 implies a quality data set. *IQR/Median value over 0.15 implies a poor quality data set. SIGNIFICANT CHANGE FROM PRIOR EXAM: Significant change if liver stiffness measurement is 10% or greater from prior exam. OTHER CONSIDERATIONS: The stage of liver fibrosis may be overestimated in the setting of acute hepatitis, liver inflammation, elevated liver function tests, hepatic vascular congestion, obstructive cholestasis, non-fasting state, and infiltrative diseases such as amyloidosis and lymphoma. In some patients with NAFLD, the liver stiffness thresholds for compensated advanced chronic liver disease may be lower. In causes other than viral hepatitis and NAFLD, liver stiffness thresholds are not well established. Electronically signed by: Naseem Mccormick MD 12/17/2023 02:10 PM EDT
== END 2023-12-10 09:00 | disposition home or self-care (01) ==
LOC: HO.US 08:59
PROVIDERS: PCP Internal Medicine Medical Oncology; Visit Provider Surgery
DX: E66.01 Morbid (severe) obesity due to excess calories (principal); G47.30 Sleep apnea, unspecified; J45.909 Unspecified asthma, uncomplicated
CPT/HCPCS: 76700; 76981

== ENCOUNTER → 2023-12-12 11:18 | Outpatient (BNVA) | payer OTHER, SELFPAY | PROVIDERS: PCP Internal Medicine Medical Oncology; Visit Provider Counselor Mental Health ==

== ENCOUNTER → 2023-12-12 11:18 | Outpatient (AMB) | payer OTHER, SELFPAY ==
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
== END ==
LOC: HO.HBST 11:18
PROVIDERS: PCP Internal Medicine Medical Oncology; Visit Provider Counselor Mental Health
DX: F31.81 Bipolar II disorder (principal); F41.9 Anxiety disorder, unspecified; F98.8 Other specified behavioral and emotional disorders with onset usually occurring in childhood and adolescence
CPT/HCPCS: 90837

== ENCOUNTER → 2024-07-07 09:33 | Outpatient (REF) | payer OTHER, SELFPAY ==
--- NOTE | 2024-07-07 09:40 | ECG_ITS ---
Test Reason : dizziness Blood Pressure : */* mmHG Vent. Rate : 80 BPM Atrial Rate : 80 BPM P-R Int : 158 ms QRS Dur : 88 ms QT Int : 390 ms P-R-T Axes : 6 4 17 degrees QTcB Int : 449 ms Normal sinus rhythm Normal ECG When compared with ECG of 06-Oct-2023 10:32, No significant change was found Referred By: Maury Kennedy Electronically Signed By: Ancelmo Mast
--- OUTSIDE RECORDS SUMMARY | 2024-07-07 10:22 | XMS_ITS ---
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 Name Role Phone Maury Kennedy Primary Care Provider REASON FOR VISIT Message Social History Sex Assigned At : Social History Observation Description Sex Assigned At Male Encounters Encounter Location Date Provider Diagnosis Maury Kennedy III, MD [address] [place] [address] [place] [phone] 05/05/2024 Maury Kennedy Plan Of Treatment Next Appt Details Provider Name:Maury Kennedy, 10/06/2024 04:00:00 PM, [address] [place] [address] [place], [id number], Progress Notes * Rigoberto AZEVEDODOB:1995 (28 yo M)Acc No.[id number]:05/05/2024 Patient:?RAGHAV Rigoberto :1995???Age:28 Y???Sex:Male Address:[place], [address] * true * Date:? Generated for Printi ng/Faxing/eTransmitting on:?07/07/2024 10:22 AM EDT
--- OUTSIDE RECORDS SUMMARY | 2024-07-07 10:22 | XMS_ITS | Clinical Summary ---
Author Organization [facility] Address [address] [place] [phone] Phone Care Team Providers Care Welding Specialist Name Role Phone Unavailable Primary Care Provider Unavailabl e Social History Tobacco Use Types Packs/Day Years Used Date Smoking Tobacco: Never Assessed Sex and Gender Information Value Date Recorded Sex Assigned at Not on file Legal Sex Male 9:48 PM EST Gender Identity Not on file Sexual Orientation Not on file Plan of Treatment Upcoming Encounters Date Type Department Care Team ([facility] Contact Info) Description 04/19/2025 9:30 AM EST Consult Bariatric Surgery - [place] [address] [place] [id number] Nancy Youssef MD [address] [place] [address] Health Maintenance Due Date Last Done Comments DTaP,Tdap,and Td Vaccines (1 - Tdap) 2013 Hepatitis B Vaccines (1 of 3 - 19+ 3-dose series) 2013 Cholesterol Screening (Lipid Panel) 04/29/2023 Depression Screening 04/29/2023 HIV Screening 04/29/2023 Hepatitis C Screening 04/29/2023 Social Influencers of Health Screening 04/29/2023 COVID-19 Vaccine ( - 2023-2 5 season) 2023 Influenza Vaccine (Season Ended) 2024 HIB Vaccines Aged Out No longer eligi ble based on patient's age to complete this topic HPV Vaccines Aged Out No longer eligi ble based on patient's age to complete this topic Hepatitis A Vaccines Aged Out No long er eligible based on patient's age to complete this topic IPV Vaccines Aged Out No longer eligi ble based on patient's age to complete this topic MMR Vaccines Aged Out No longer eligi ble based on patient's age to complete this topic Meningococcal ACWY Vaccine Aged Out N o longer eligible based on patient's age to complete this topic Meningococcal B Vaccine Aged Out No l onger eligible based on patient's age to complete this topic Pneumococcal Vaccine: Pediat rics (0 to 5 Years) and At-Risk Patients (6 to 64 Years) Aged Out No longer eligible b ased on patient's age to complete this topic RSV Immunization Patients Un gonzalez 20 months Aged Out No longer eligible b ased on patient's age to complete this topic Varicella Vaccines Aged Out No longer eligible based on patient's age to complete this topic Insurance [facility] [place] [id number]
--- OUTSIDE RECORDS SUMMARY | 2024-07-07 10:23 | XMS_ITS ---
Author Organization Maury Kennedy III, MD Address [address] [place] [address] Care Team Providers Care Perfect Binder Feeder Offbearer Name Role Phone Maury Kennedy Primary Care Provider Allergies Allergen (clinical drug ingredient) Drug/Non Drug Allergy documented on EMR Reaction Allergy Type Onset Date Status Shellfish (FN) Shellfish-derived Products Unknown Drug Allergy Active shrimp allergenic extract Shrimp (Diagnostic) Unknown Drug Allergy Active amoxicillin Amoxicillin Unknown Drug Allergy Act annalee Reason For Referral Reason Evaluate and Treat Weight Loss Diagnosis 1 Morbid obesity (E66. 01) Referral Organization Maury Kennedy III, MD Referring Provider First Name Maury Referring Provider Last Name Marcia Referring Provider Speciality Internal M edicine Referred Provider melissa Nguyễn ment Referred Provider Specialty Unknown General Notes D, Shannen 06/21/2024 10:28:09 AM > Referral and Progress note faxed Referral Priority Routine REASON FOR VISIT wants muscle relazers, grandmother better, lower back hurts and both legs down to knee, Low back pain radiating down her legs, Asthma, Morbid obesity, Depression Medications Medication SIG (Take, Route, Frequency, Duration) Notes Start Date End Date Status Albuterol Sulfate HFA 108 (90 Base) MCG/ACT 1 puff as needed Inhalation every 4 hrs 12/27/2022 Active Truvada 200-300 MG TAKE 1 TABLET BY BUCK TH EVERY DAY Active Wegovy 1 MG/0.5ML 0.5 mL Subcutaneous inject 1mg once a week for 4 weeks 08/27/2023 Active Zepbound 2.5 MG/0.5ML 0.5 mL Subcutaneou s injection 0.5ml once a week for 4 weeks 02/16/2024 Active Naltrexone-buPROPion HCl ER 8-90 MG 1 tablet in the morning Orally Once a day 05/03/2024 Active Imelda Active Cyclobenzaprine HCl 10 MG 1 tablet Orall y t hree times a day for 14 days 06/14/2024 06/28/2024 Active busPIRone HCl 10 MG TAKE 1 TABLET BY BUCK TH EVERY NIGHT AT BEDTIME FOR ANXIETY Oral Active Vitamin D 25 MCG (1000 UT) 1 tablet Oral ly Once a day 10/27/2023 Active Gabapentin 300 MG 1 capsule Orally thr ee times a day 02/02/2024 Active ZyrTEC Allergy 10 MG 1 tablet Orally Onc e a day 10/16/2021 Active Latuda 20 MG 1 tablet in the even ing with food Orally Once a day Active lamoTRIgine 100 MG TAKE 1 TABLET BY BUCK TH EVERY DAY Oral Active Social History Tobacco Use: Social History Observation Description Date Details (start date - stop date) Never Smoker NA - NA Sex Assigned At : Social History Observation Description Sex Assigned At Male Tobacco Use/Smoking Question Answer Notes Patient is a nonsmoker Additional Findings: Tobacco Non-User Aggressive non-smoker Vital Signs Temperature 97.5 degrees Fahrenheit 06/15/19 25 Blood pressure systolic 151 mm Hg 06/15/19 25 Blood pressure diastolic 96 mm Hg 025 Heart Rate 78 /min 06/14/2024 Height 69 in 06/14/2024 Weight 362 lbs 06/14/2024 BMI 53.45 kg/m2 06/14/2024 Encounters Encounter Location Date Provider Diagnosis Maury Kennedy III, MD [address] [place] [address] [place] [address] 06/14/2024 Maury Kennedy Asthma, unspecified asthma severity, unspecified whether complicated, unspecified whether persistent J45.909 ; Morbid obesity E66.01 ; History of depression Z86.59 and Midline low back pain without sciatica, unspecified chronicity M54.5 Assessments Encounter Date Diagnosis (ICD Code) Assessment Notes Treatment Notes Treatment Clinical Notes 06/14/2024 Asthma, unspecified asthma severity, unspecified whether complicated, unspecified whether persistent (ICD-10 - J45.909) He has had no wheezing lately. We discussed how to cope with the upcoming pollen season. He was breathing room air comfortably today. 06/14/2024 Morbid obesity (ICD-10 - E66.01) He has gained 11 pounds. We had a discussion about how to deal with stress eating and the alternatives to reduce dysphoric feelings. 06/14/2024 History of depression (ICD-10 - Z86.59) He will return to the office and to [facility] of the depression worsens. 06/14/2024 Midline low back pain without sciatica, unspecified chronicity (ICD-10 - M54.5) He will rest and use a heating pad. I have given him some gabapentin. If he worsens I will try dexamethasone although this can stimulate the appetite. Plan Of Treatment Medication Medication Name Sig Start Date Stop Date Notes Albuterol Sulfate HFA 108 (9 0 Base) MCG/ACT 1 puff as needed Inhalation every 4 hrs 12/27/2022 Truvada 200-300 MG TAKE 1 TABLET BY BUCK TH EVERY DAY Wegovy 1 MG/0.5ML 0.5 mL Subcutaneous inject 1mg once a week for 4 weeks 08/27/2023 Zepbound 2.5 MG/0.5ML 0.5 mL Subcutaneou s injection 0.5ml once a week for 4 weeks 02/16/2024 Naltrexone-buPROPion HCl ER 8-90 MG 1 tablet in the morning Orally Once a day 05/03/2024 Imelda Cyclobenzaprine HCl 10 MG 1 tablet Orall y t hree times a day for 14 days 06/14/2024 06/28/2024 busPIRone HCl 10 MG TAKE 1 TABLET BY BUCK TH EVERY NIGHT AT BEDTIME FOR ANXIETY Oral Vitamin D 25 MCG (1000 UT) 1 tablet Orally Once a day 09/29 Gabapentin 300 MG 1 capsule Orally thr ee times a day 02/02/2024 ZyrTEC Allergy 10 MG 1 tablet Orally Once a day 10/16/2021 Latuda 20 MG 1 tablet in the even ing with food Orally Once a day lamoTRIgine 100 MG TAKE 1 TABLET BY BUCK TH EVERY DAY Oral Pending Test Test Name Order Date PROFILE, FASTING (COMPREHENSIVE METABOLI C) 06/14/2024 CBC w DIFF 06/14/2024 SED RATE (ESR) 06/14/2024 Lipid Panel 06/14/2024 Hemoglobin A1c 06/14/2024 Referrals Referral Date Details 06/14/2024 06/14/2024, Evaluate and Treat Weight Loss, [facility] management [facility] Next Appt Details Follow Up: 3 Months, Reason: ov Provider Name:Maury Kennedy, 10/06/2024 04:00:00 PM, [address] [place] [address] [place] [address], [place], [address], Progress Notes * RAGHAV, SukhdeeprahulkoltonDOB:1995 (28 yo M)Acc No.[id number]:06/14/2024 Progress Notes Patient:?Rigoberto AZEVEDO Provider:?Maury Kennedy MD :1995???Age:28 Y???Sex:Male Rigoberto e:06/14/2024 Address:[address] [place] [address] [id number] Subjective: * Chief Complaints: * ???Wants muscle relazers, gr andmother better, lower back hurts and both legs down to kneeLow back pain radiating down her legsAsthmaMorbid obesityDepression * HPI: ???COVID-19 Screening:?He returns to monitor his medical issues.? The low back pain that radiates down his legs is slightly worse and he has muscle spasm to the left of his lumbar spine.? ?I have given him some cyclobenzaprine for this with instructions on heat and rest.? His depression is unchanged.? He has had no asthma recently.? He continues his efforts at weight loss. He has gained 11 pounds recently setting back pain and stress in his personal life. ?Questions?Have you had any new onset fever, chills, cough, congestion, sore throat, shortness of breath, muscle aches??No * ROS:?General/Constitutional:?pain?Lumbar pain radiating down to the knee on the left and into the right buttock.?Chills?denies.?Fatigue?admits.?Fever?denies.?ENT:?Decreased hearing?denies.?Respiratory:?Cough?denies.?Cardiovascular:?Chest pain with exertion?denies.?Dyspnea on exertion?denies.?Shortness of breath?denies.?Gastrointestinal:?Constipation?denies.?Decreased appetite?denies.?Diarrhea?denies.?Heartburn?denies.?Nausea?denies.?Rectal bleeding?denies.?Vomiting?denies.?Hematology:?bruising?denies.?petechiae?denies.?Swollen glands?none have been noted.?Genitourinary:?Frequent urination?denies.?Musculoskeletal:?Muscle aches?Muscles to the left of the lumbar spine.?Painful joints?denies.?Sciatica?denies.?Weakness?denies.?Skin:?Itching?denies.?Rash?denies.?Skin lesion(s)?denies.?Neurologic:?Difficulty speaking?denies.?Dizziness?denies.?Headache?denies.?Low back pain?denies.?Psychiatric:?Depressed mood?which is mild.? * Medical History:? * Surgical History:?No history * Hospitalization/Major Diagno stic Procedure:?No history * Family History:?Father: 40 y rs, Hypertension, diabetes mellitus, obesity.?Mother: 32 yrs, Healthy and well.?4 brother(s) , 3 sister(s) . .? Some of his brothers have attention deficit disorder, depression and anxiety. A paternal uncle paternal grandfather and paternal grandmother are all obese. He has no children. * Social History:?Tobacco Use:?Tobacco Use/Smoking?Patient is a?nonsmoker ?Additional Findings: Tobacco Non-User?Aggressive non-smoker ???He was born and [place]. He is single without children. 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 * Medications:?TakingZepbound 2.5 MG/0.5ML Solution Auto-injector 0.5 mL Subcutaneous injection 0.5ml once a week for 4 weeks Truvada 200-300 MG Tablet TAKE 1 TABLET BY MOUTH EVERY DAY Wegovy 1 MG/0.5ML Solution Auto-injector 0.5 mL Subcutaneous inject 1mg once a week for 4 weeks Albuterol Sulfate HFA 108 (90 Base) MCG/ACT Aerosol Solution 1 puff as needed Inhalation every 4 hrs Latuda 20 MG Tablet 1 tablet in the evening with food Orally Once a day lamoTRIgine 100 MG Tablet TAKE 1 TABLET BY MOUTH EVERY DAY Oral ZyrTEC Allergy 10 MG Tablet 1 tablet Orally Once a day Imelda Vitamin D 25 MCG (1000 UT) Tablet 1 tablet Orally Once a day , stop date 04/28/2025Gabapentin 300 MG Capsule 1 capsule Orally three times a day Naltrexone-buPROPion HCl ER 8- 90 MG Tablet Extended Release 12 Hour 1 tablet in the morning Orally Once a day , stop date 04/28/2025usPIRone HCl 10 MG Tablet TAKE 1 TABLET BY MOUTH EVERY NIGHT AT BEDTIME FOR ANXIETY Oral Medication List reviewed and reconciled with the patientTaking Zepbound 2.5 MG/0.5ML Solution Auto-injector 0.5 mL Subcutaneous injection 0.5ml once a week for 4 weeks Taking Truvada 200-300 MG Tablet TAKE 1 TABLET BY MOUTH EVERY DAY Taking Wegovy 1 MG/0.5ML Solution Auto-injector 0.5 mL Subcutaneous inject 1mg once a week for 4 weeks Taking Albuterol Sulfate HFA 108 (90 Base) MCG/ACT Aerosol Solution 1 puff as needed Inhalation every 4 hrs Taking Latuda 20 MG Tablet 1 tablet in the evening with food Orally Once a day Taking lamoTRIgine 100 MG Tablet TAKE 1 TABLET BY MOUTH EVERY DAY Oral Taking ZyrTEC Allergy 10 MG Tablet 1 tablet Orally Once a day Taking Imelda Taking Vitamin D 25 MCG (1000 UT) Tablet 1 tablet Orally Once a day , stop date 04/28/2025Taking Gabapentin 300 MG Capsule 1 capsule Orally three times a day Taking Naltrexone-buPROPion HCl ER 8-90 MG Tablet Extended Release 12 Hour 1 tablet in the morning Orally Once a day , stop date 04/28/2025Taking busPIRone HCl 10 MG Tablet TAKE 1 TABLET BY MOUTH EVERY NIGHT AT BEDTIME FOR ANXIETY Oral Medication List reviewed and reconciled with the patient * Allergies:?AmoxicillinShrimp (Diagnostic)Shellfish-derived Productsno[Allergies Verified] Objective: * Vitals:?Ht: 69, Wt: 362, BMI :53.45, BP: 151/96, HR: 78, Temp: 97.5, Ht-cm: 175.26, Wt-k.2. * Examination: ???General Examination: ?GENERAL APPEARANCE:?pleasant, well nourished, well developed, in no acute distress, calm and relaxed, morbidly obese, man.?HEAD:?atraumatic, normocephalic.?EYES:?eomi, perrla, anicteric, conjugate.?EARS:?normal.?NOSE:?septum intact.?ORAL CAVITY:?normal, unremarkable.?NECK/THYROID:?no jugular venous distention, no carotid bruit, thyroid normal.?LYMPH NODES:?no enlarged lymph nodes,spleen normal.?SKIN:?no suspicious lesions, anicteric.?HEART:?no clicks, gallops, murmurs, or rubs, regular rhythm, S1, S2 normal, no s3, or vascular bruits.?LUNGS:?clear to auscultation .?BREASTS:??no masses palpable bilaterally.?ABDOMEN:?bowel sounds normal, no ascites, no organomegaly, no mass, morbid obesity.?RECTAL EXAM:?not examined.?MUSCULOSKELETAL:?extremities unremarkable, no clubbing, cyanosis or edema.?PERIPHERAL PULSES:?normal.?NEUROLOGIC:?alert and oriented, cranial nerves 2-12 grossly intact, deep tendon reflexes 2+ symmetrical, motor strength normal upper and lower extremities, sensory exam intact.?PSYCH:?alert, oriented, mood depressed, speech diminished output, volume.? Assessment: * Assessment: 1.?Morbid obesity - E66.01 ( Primary)???Notes :He has gained 11 pounds.? We had a discussion about how to deal with stress eating? and the alternatives to reduce dysphoric feelings.???2.?Asthma, unspecified asthma severity, unspecified whether complicated, unspecified whether persistent - J45.909???Notes :He has had no wheezing lately.? We discussed how to cope with the upcoming pollen season. He was breathing room air comfortably today.???3.?History of depression - Z86.59???Notes :He will return to the office and to [facility] of the depression worsens.???4.?Midline low back pain without sciatica, unspecified chronicity - M54.5???Notes :He will rest and use a heating pad.? I have given him some gabapentin.? If he worsens I will try dexamethasone although this can stimulate the appetite.??? Plan: * Treatment: 2.?Asthma, unspecified asthm a severity, unspecified whether complicated, unspecified whether persistent? Continue Imelda;?Continue Vitamin D Tablet, 25 MCG (1000 UT), 1 tablet, Orally, Once a day;?Continue Gabapentin Capsule, 300 MG, 1 capsule, Orally, three times a day;?Continue busPIRone HCl Tablet, 10 MG, TAKE 1 TABLET BY MOUTH EVERY NIGHT AT BEDTIME FOR ANXIETY, Oral;?Continue Naltrexone-buPROPion HCl ER Tablet Extended Release 12 Hour, 8-90 MG, 1 tablet in the morning, Orally, Once a day;?Start Cyclobenzaprine HCl Tablet, 10 MG, 1 tablet, Orally, t hree times a day, 14 days, 42, Refills 0.?? 3.?Others? Continue Zepbound Solution Auto-injector, 2.5 MG/0.5ML, 0.5 mL, Subcutaneous, injection 0.5ml once a week for 4 weeks;?Continue Truvada Tablet, 200-300 MG, TAKE 1 TABLET BY MOUTH EVERY DAY;?Continue Wegovy Solution Auto-injector, 1 MG/0.5ML, 0.5 mL, Subcutaneous, inject 1mg once a week for 4 weeks;?Continue Albuterol Sulfate HFA Aerosol Solution, 108 (90 Base) MCG/ACT, 1 puff as needed, Inhalation, every 4 hrs;?Continue Latuda Tablet, 20 MG, 1 tablet in the evening with food, Orally, Once a day;?Continue lamoTRIgine Tablet, 100 MG, TAKE 1 TABLET BY MOUTH EVERY DAY, Oral;?Continue ZyrTEC Allergy Tablet, 10 MG, 1 tablet, Orally, Once a day.?? * Imaging:? * ?Imaging: EEG ?Imaging: ECG 7 day belle er monitor * Procedure Codes:? * Preventive Medicine:? ??Counseling:?Care goal follow-up plan:?Counseling for abnormal BMI given?Yes ?Above Normal BMI Follow-up?Dietary management education, guidance, and counseling, Dietary needs education, Exercise promotion: strength training, Exercise promotion: stretching, Feeding regime, Giving encouragement to exercise, Lifestyle education regarding diet, Nutrition / feeding management, Nutrition therapy, Prescribed activity/exercise education, Prescribed diet education, Prescribed dietary intake, Special diet education, Weight monitoring , Intervention, Order not done: Medical or Other reason not done * Follow Up:?3 Months (Reason: ov) * Images: * Sign off status: Completed true * Provider:?Maury Kennedy MD Date:?05/29 Generated for Harlan alexis/Greg/Mary Carmenitting on:?07/07/2024 10:22 AM EDT History and Physical Notes * HPI (History of Present Illness) Category Sub-Category Detail Notes COVID-19 Screening Questions Have you had any new onset fever, chills, cough, congestion, sore throat, shortness of breath, muscle aches?: No Examination Category Sub-Category Detail Notes General Examination GENERAL APPEARANCE: pleasant , well nourished, well developed, in no acute distress, calm and relaxed, morbidly obese, man HEAD: atraumatic, normocep halic EYES: eomi, perrla, anicte malcom, conjugate EARS: normal NOSE: septum intact NECK/THYROID: no jugular venous di stention, no carotid bruit, thyroid normal HEART: no clicks, gallops, murmurs, or rubs, regular rhythm, S1, S2 normal, no s3, or vascular bruits LUNGS: clear to auscultatio n ABDOMEN: bowel sounds normal, no ascites, no organomegaly, no mass, morbid obesity NEUROLOGIC: alert and oriented, cranial nerves 2-12 grossly intact, deep tendon reflexes 2+ symmetrical, motor strength normal upper and lower extremities, sensory exam intact SKIN: no suspicious lesion s, anicteric PERIPHERAL PULSES: normal BREASTS: no masses palpable b ilaterally MUSCULOSKELETAL: extremities unremark able, no clubbing, cyanosis or edema LYMPH NODES: no enlarged lymph no jewel,spleen normal RECTAL EXAM: not examined PSYCH: alert, oriented, moo d depressed, speech diminished output, volume ORAL CAVITY: normal, unremarkable Consultation Request Notes Referral Date Referring Provider Referred Provider Not ramandeep 06/14/2024 Maury Kennedy, weight management Ev aluate and Treat Weight Loss
--- OUTSIDE RECORDS SUMMARY | 2024-07-07 10:23 | XMS_ITS ---
Author Organization Unknown Problems Problem Status Start date Recorded date Uncomplicated asthma 2022-12 Morbid obesity 2023-01-27 Patient Care team information Name Category Status Period Participants - - Proposed period not known - - - Proposed period not known - - - Proposed period not known - - - Proposed period not known - - - Proposed period not known - - - Proposed period not known -
--- OUTSIDE RECORDS SUMMARY | 2024-07-07 10:23 | XMS_ITS ---
Author Organization Maury Kennedy III, MD Address [address] [place] [address] [place] [address] Care Team Providers Care Clinical Fellow Name Role Phone Maury Kennedy Primary Care Provider [phone] REASON FOR VISIT EKG, 7 Day Holter Social History Sex Assigned At : Social History Observation Description Sex Assigned At Male Encounters Encounter Location Date Provider Diagnosis Maury Kennedy III, MD [address] [place] [address] [place] [address] 06/21/2024 Maury Kennedy Chest pain R07.9 and Heart palpitations R00.2 Assessments Encounter Date Diagnosis (ICD Code) Assessment Notes Treat ment Notes Treatment Clinical Notes 06/21/2024 Chest pain (ICD-10 - R07.9) 06/21/2024 Heart palpitations (ICD-10 - R00.2) Plan Of Treatment Pending Test Test Name Order Date ECG 12 lead EKG 06/21/2024 ECG 7 day holter monitor 06/21/2024 Next Appt Details Provider Name:Maury Kennedy, 10/06/2024 04:00:00 PM, [address] [place] [address] [place], [address], Progress Notes * Rigoberto AZEVEDODOB:1995 (28 yo M)Acc No.[id number]:06/21/2024 Patient:Rigoberto ARIAS :1995???Age:28 Y???Sex:Male Address: [place], [address] Subjective: * Chief Complaints: * ???EKG, 7 Day Holter * Medical History:? * Surgical History:? * Hospitalization/Major Diagno stic Procedure:? * Medications:? Objective: * Vitals:? * Physical Examination:? Assessment: * Assessment: 1.?Chest pain - R07.9???2.?H eart palpitations - R00.2??? Plan: * Treatment: 2.?Heart palpitations?Imaging: ECG 12 lead EKG ?Imaging: ECG 7 day holter monitor * Procedure Codes:? * * Date:?
== END ==
LOC: HO.CARD 09:33
PROVIDERS: PCP Internal Medicine Medical Oncology; Visit Provider Internal Medicine Medical Oncology
DX: R07.9 Chest pain, unspecified (principal); R00.2 Palpitations
CPT/HCPCS: 93005; 93242

== ENCOUNTER → 2024-07-07 09:40 | Outpatient (BNV) | payer OTHER, SELFPAY | PROVIDERS: PCP Internal Medicine Medical Oncology; Visit Provider Internal Medicine Cardiovascular Disease | DX: R42 Dizziness and giddiness (principal) | CPT/HCPCS: 93010 ==

== ENCOUNTER 2024-10-13 14:24 | Outpatient (REF) | payer OTHER, SELFPAY ==
--- OUTSIDE RECORDS SUMMARY | 2024-09-29 10:28 | XMS_ITS ---
Author Organization Maury Kennedy III, MD Address [address] [place] [address] Care Team Providers Care Fire And Safety Helper Name Role Phone Maury Kennedy Primary Care Provider Medications Medication SIG (Take, Route, Frequency, Duration) Notes Start Date End Date Status Doxycycline Hyclate 100 MG 1 capsule Ora lly twice a day for 10 days 09/29/2024 10/09/2024 Active Social History Sex Assigned At : Social History Observation Description Sex Assigned At Male Encounters Encounter Location Date Provider Diagnosis Maruy Kennedy III, MD [address] [place] [address] [place] [address] 09/29/2024 Maury Kennedy Plan Of Treatment Medication Medication Name Sig Start Date Stop Date Notes Doxycycline Hyclate 100 MG 1 capsule Ora lly twice a day for 10 days 09/29/2024 10/09/2024 Next Appt Details Provider Name:Maury Kennedy, 10/14/2024 09:00:00 AM, [address] [place] [address] [place], [address], Provider Name:Maury Kennedy, 01/19/2025 03:30:00 PM, [address] [place] [address] [place], [address], Provider Name:Maury Kennedy, 10/12/2025 04:00:00 PM, [address] [place] [address] [place], [address], Progress Notes * Rigoberto AZEVEDODOB:1995 (29 yo M)Acc No.[id number]:09/29/2024 Patient: Rigoberto HERNANDEZ :1995 A ge:29 Y S ex:Male [facility] [place], [address] * Refills Start Doxycycline Hyclate Capsule, 100 MG, Orally, 20 Capsule, 1 capsule, twice a day, 10 days, Refills=0 * true * Date: Generated for Harlan alexis/Greg/eTransmitting on: 0 10/13/2024 03:06 PM EDT
[2024-10-13 14:45] LABS: MANUAL DIFF FLAG NO
[2024-10-13 15:01] LABS: Hematocrit 51.1 % (42.0-52.0); Hemoglobin 17.1 g/dl (14.0-18.0); Imm Gran Abs Auto 0.01 X10*3/uL (0.00-0.03); Imm Gran Pct Auto 0.1 % (0.0-0.4); Lymphocytes Absolute Auto 2.1 X10*3/uL (1.2-4.9); Mean Corpuscular HGB Conc 33.5 g/dl (31.0-36.0); Mean Corpuscular Hemoglobin 27.1 pg (27.0-33.0); Mean Corpuscular Volume 80.9 fL (80.0-98.0); NRBC Abs Auto 0.000 X10*3/uL (0.0-0.012); NRBC Pct Auto 0.0 /100WBC (0.0-0.2); Platelet Count 280 X10*3/uL (160-400); Red Blood Count 6.32 X10*6/uL (4.60-5.80); White Blood Count 7.7 X10*3/uL (4.8-10.8)
--- OUTSIDE RECORDS SUMMARY | 2024-10-13 15:06 | XMS_ITS | Clinical Summary ---
Author Organization [facility] Address [address] [place] [phone] Phone Care Team Providers Care Junior Web Developer Name Role Phone Unavailable Primary Care Provider Unavailabl e Social History Tobacco Use Types Packs/Day Years Used Date Smoking Tobacco: Never Assessed Sex and Gender Information Value Date Recorded Sex Assigned at Not on file Legal Sex Male 9:48 PM EST Gender Identity Not on file Sexual Orientation Not on file Plan of Treatment Upcoming Encounters Date Type Department Care Team ([facility] st Contact Info) Description 04/19/2025 9:30 AM EST Consult Bariatric Surgery - [place] [address] [place] [id number] Nancy Youssef MD [address] [place] [address] Health Maintenance Due Date Last Done Comments DTaP,Tdap,and Td Vaccines (1 - Tdap) 2013 Hepatitis B Vaccines (1 of 3 - 19+ 3-dose series) 2013 Cholesterol Screening (Lipid Panel) 04/29/2023 Depression Screening 04/29/2023 HIV Screening 04/29/2023 Hepatitis C Screening 04/29/2023 Social Influencers of Health Screening 04/29/2023 COVID-19 Vaccine ( - 2023-2 5 season) 2023 Influenza Vaccine (#1) 2024 HIB Vaccines Aged Out No longer [...] 5 Years) and At-Risk Patients (6 to 49 Years) Aged Out No longer eligible b ased on patient's age to complete this topic RSV Immunization Patients Un gonzalez 20 months Aged Out No longer eligible b ased on patient's age to complete this topic Varicella Vaccines Aged Out No longer eligible based on patient's age to complete this topic Insurance [facility] [place] [id number]
[2024-10-13 15:48] LABS: Albumin Level 4.5 g/dL (3.5-5.0); Alkaline Phosphatase 66 U/L (39-117); Anion Gap 9 (12-20); Aspartate Amino Transferase 44 U/L (5-37); Blood Urea Nitrogen 12 mg/dL (9-16); Calcium 9.6 mg/dL (8.4-10.2); Carbon Dioxide 29 mmol/L (22-29); Chloride 106 mmol/L (96-108); Estimated Glomerular Filt Rate > 60; Potassium 4.0 mmol/L (3.3-5.1); Sodium 140 mmol/L (135-145); Total Protein 7.9 g/dL (6.5-8.0)
[2024-10-13 16:06] LABS: Alanine Aminotransferase 69 U/L (0-40); Free T4 (Free Thyroxine) 1.07 ng/dL (0.71-1.85); Thyroid Stimulating Hormone 3.07 uIU/mL (0.32-4.0)
== END 2024-10-13 14:25 | disposition home or self-care (01) ==
LOC: HO.LAB 14:24
PROVIDERS: PCP Internal Medicine Medical Oncology; Visit Provider Internal Medicine Medical Oncology
DX: E66.01 Morbid (severe) obesity due to excess calories (principal); I10 Essential (primary) hypertension; E16.2 Hypoglycemia, unspecified; R53.83 Other fatigue; Z86.59 Personal history of other mental and behavioral disorders
CPT/HCPCS: 36415; 80053; 84439; 84443; 85025; 85652

== ENCOUNTER 2024-11-17 11:47 | Outpatient (REF) | payer OTHER, SELFPAY ==
--- OUTSIDE RECORDS SUMMARY | 2024-10-14 05:00 | XMS_ITS ---
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 Phone Maury Kennedy Primary Care Provider Allergies Allergen (clinical drug ingredient) Drug/Non Drug Allergy documented on EMR Reaction Allergy Type Onset Date Status Shellfish (FN) Shellfish-derived Products Unknown Drug Allergy Active shrimp allergenic extract Shrimp (Diagnostic) Unknown Drug Allergy Active amoxicillin Amoxicillin Unknown Drug Allergy Act annalee REASON FOR VISIT Follow up, hypertension Medications Medication SIG (Take, Route, Frequency, Duration) Notes Start Date End Date Status Imelda Unknown Triamcinolone Acetonide 0.1 % 1 application Externally once a day for 28 days 10/06/2024 Unknown Gabapentin 300 MG 1 capsule Orally thr ee times a day 02/02/2024 Unknown Amphetamine-Dextroamphetami ne 20 MG TAKE 1 TABLET BY MOUTH EVERY MORNING AND 1 TABLET BY MOUTH AT NOON Oral Unknown Venlafaxine HCl ER 37.5 MG Oral Unknown Doxycycline Hyclate 100 MG 1 capsule Ora lly twice a day 09/29/2024 Unknown Albuterol Sulfate HFA 108 (90 Base) MCG/ACT 1 puff as needed Inhalation every 4 hrs 12/27/2022 Unknown Emtricitabine-Tenofovir DF 200-300 MG TAKE 1 TABLET BY MOUTH EVERY DAY Unknown lamoTRIgine 100 MG TAKE 1 TABLET BY BUCK TH EVERY DAY Oral Unknown Social History Tobacco Use: Social History Observation Description Date Details (start date - stop date) Never Smoker NA - NA Sex Assigned At : Social History Observation Description Sex Assigned At Male Tobacco Control (Standard) Question Answer Notes Tobacco use: Nonsmoker Additional Findings: Tobacco non-user Aggressive nonsmoker Encounters Encounter Location Date Provider Diagnosis Maury Kennedy III, MD [address] [place] [address] [place] [phone] 10/14/2024 Maury Kennedy Plan Of Treatment Next Appt Details Provider Name:Maury Kennedy, 11/19/2024 10:30:00 AM, [address] [place] [address] [place], [place], [phone], Provider Name:Maury Kennedy, 01/19/2025 03:30:00 PM, [address] [place] [address] [place], [place], [phone], Provider Name:Maury Kennedy, 10/12/2025 04:00:00 PM, [address] [place] [address] [place], [place], [phone], Progress Notes * RAGHAV RigobertoDOB:1995 (29 yo M)Acc No.[id number]:10/14/2024 Progress Notes Patient: Rigoberto HERNANDEZ Provider: You Kennedy MD :1995 A ge:29 Y S ex:Male Date:10/14/2024 Address:[address] [place] [address] [place], [id number] Subjective: * Chief Complaints: * 1 . Follow up. 2. Hypertension. * ROS: G eneral/Constitutional: pain o nly normal aches and pains. C hills d enies.?Fatigue a dmits. F ever d enies. E NT: Decreased hearing d enies. R espiratory: Cough d enies. C ardiovascular: Chest pain with exertion d enies. D yspnea on exertion?denies. S hortness of breath d enies. G astrointestinal: Constipation d enies. D ecreased appetite d enies.?Diarrhea d enies. H eartburn d enies. N ausea d enies. R ectal bleeding?denies. V omiting d enies. H ematology: bruising d enies. p etechiae d enies. S wollen glands n one have been noted. G enitourinary: Frequent urination d enies. M usculoskeletal: Muscle aches d enies. P ainful joints d enies. S ciatica d enies. W eakness d enies. S kin: Itching d enies. R mayte d enies. S kin lesion(s)?denies. N eurologic: Difficulty speaking d enies. D izziness d enies.?Headache d enies. L ow back pain d enies. P sychiatric: Depressed mood d enies. * Medical History: O besity, unspecified, Low back pain, Asthma, morbid obesity, BMI 48, Anxiety and depression, Penicillin allergy, Sleep apnea, has cpap, 10 cm. * Surgical History: N o history . * Hospitalization/Major Diagno stic Procedure: N o history . * Family History: F ather: 40 yrs, Hypertension, diabetes mellitus, obesity. M other: 32 yrs, Healthy and well. M aternal Grand Mother: alive, colon cancer, Lung Cancer, diagnosed with Cancer. 4 brother(s) , 3 sister(s) . . Some of his brothers have attention deficit disorder, depression and anxiety. A paternal uncle paternal grandfather and paternal grandmother are all obese. He has no children. * Social History: T obacco Use: T obacco Control (Standard) T obacco use: N onsmoker A dditional Findings: Tobacco non-user A ggressive nonsmoker Cm cho was born and [place]. He is single without children. 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 * Medications: U nknown Doxycycline Hyclate 100 MG Capsule 1 capsule Orally twice a day , Unknown Emtricitabine-Tenofovir DF 200-300 MG Tablet TAKE 1 TABLET BY MOUTH EVERY DAY , Unknown Albuterol Sulfate HFA 108 (90 Base) MCG/ACT Aerosol Solution 1 puff as needed Inhalation every 4 hrs , Unknown lamoTRIgine 100 MG Tablet TAKE 1 TABLET BY MOUTH EVERY DAY Oral , Unknown Imelda , Unknown Gabapentin 300 MG Capsule 1 capsule Orally three times a day , Unknown Triamcinolone Acetonide 0.1 % Cream 1 application Externally once a day , Unknown Venlafaxine HCl ER 37.5 MG Capsule Extended Release 24 Hour Oral , Unknown Amphetamine-Dextroamphetamine 20 MG Tablet TAKE 1 TABLET BY MOUTH EVERY MORNING AND 1 TABLET BY MOUTH AT NOON Oral , Medication List reviewed and reconciled with the patient * Allergies: A moxicillin, Shrimp (Diagnostic), Shellfish-derived Products. Objective: * Vitals: * Examination: G eneral Examination: GENERAL APPEARANCE: p leasant, well nourished, well developed, in no acute distress, calm and relaxed. HEAD: a traumatic, normocephalic. EYES: e derrick, perrla, anicteric, conjugate. EARS: n ormal. NOSE: s eptum intact. ORAL CAVITY: n ormal, unremarkable. NECK/THYROID: n o jugular venous distention, no carotid bruit, thyroid normal. LYMPH NODES: n o enlarged lymph nodes,spleen normal. SKIN: n o suspicious lesions, anicteric. HEART: n o clicks, gallops, murmurs, or rubs, regular rhythm, S1, S2 normal, no s3, or vascular bruits. LUNGS: c lear to auscultation . BREASTS: no masses palpable bilaterally. ABDOMEN: b owel sounds normal, no ascites, no organomegaly, no mass. RECTAL EXAM: n ot examined. MUSCULOSKELETAL: e xtremities unremarkable, no clubbing, cyanosis or edema. PERIPHERAL PULSES: n ormal. NEUROLOGIC: a lert and oriented, cranial nerves 2-12 grossly intact, deep tendon reflexes 2+ symmetrical, motor strength normal upper and lower extremities, sensory exam intact. PSYCH: a lert, oriented. Assessment: Plan: * Treatment: * Images: * The named appointment provid er may or may not be the originator of this progress note, and it is not deemed complete until electronically signed by the appointment provider. Sign off status: Pending * Provider: You Kennedy MD Date: 0 10/14/2024 Generated for Harlna alexis/Greg/Yumiko on: 0 11/17/2024 01:01 PM EDT History and Physical Notes * Examination Category Sub-Category Detail Notes General Examination GENERAL APPEARANCE: pleasant , well nourished, well developed, in no acute distress, calm and relaxed HEAD: atraumatic, normocep halic EYES: eomi, perrla, anicte malcom, conjugate EARS: normal NOSE: septum intact NECK/THYROID: no jugular venous di stention, no carotid bruit, thyroid normal HEART: no clicks, gallops, murmurs, or rubs, regular rhythm, S1, S2 normal, no s3, or vascular bruits LUNGS: clear to auscultatio n ABDOMEN: bowel sounds normal, no ascites, no organomegaly, no mass NEUROLOGIC: alert and oriented, cranial nerves 2-12 grossly intact, deep tendon reflexes 2+ symmetrical, motor strength normal upper and lower extremities, sensory exam intact SKIN: no suspicious lesion s, anicteric PERIPHERAL PULSES: normal BREASTS: no masses palpable b ilaterally MUSCULOSKELETAL: extremities unremark able, no clubbing, cyanosis or edema LYMPH NODES: no enlarged lymph no jewel,spleen normal RECTAL EXAM: not examined PSYCH: alert, oriented ORAL CAVITY: normal, unremarkable
--- NOTE | ~2024-11-17 | XR_ITS ---
EXAMINATION: XR LUMBOSACRAL SPINE CLINICAL INFORMATION: ACUTE BACK PAIN,SCIATICA BILATERL COMPARISON: None available. TECHNIQUE: AP and lateral views FINDINGS: Mild endplate sclerosis at L4-5 and L5-S1. No acute cortical disruption or malalignment. No lytic or blastic lesions. XR/XR lumbar spine 2-3V IMPRESSION: Mild spondylosis without acute fracture or listhesis. Electronically signed by: Dashawn Blake MD 11/17/2024 12:17 PM EDT
--- NOTE | ~2024-11-17 | XR_ITS ---
EXAMINATION: XR SACRUM AND COCCYX CLINICAL INFORMATION: ACUTE BACK PAIN COMPARISON: Correlated to the lumbar spine x-ray same day. TECHNIQUE: AP and lateral views FINDINGS: No acute cortical disruption. Mild endplate sclerosis at L5-S1.. No lytic or blastic lesions. XR/XR sacrum coccyx min 2V IMPRESSION: No acute fracture. Electronically signed by: Dashawn Blake MD 11/17/2024 12:18 PM EDT
--- OUTSIDE RECORDS SUMMARY | 2024-11-17 13:02 | XMS_ITS | Clinical Summary ---
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 Name Role Phone Unavailable Primary Care Provider Unavailabl e Social History Tobacco Use Types Packs/Day Years Used Date Smoking Tobacco: Never Assessed Sex and Gender Information Value Date Recorded Sex Assigned at Not on file Legal Sex Male 9:48 PM EST Gender Identity Not on file Sexual Orientation Not on file Plan of Treatment Upcoming Encounters Date Type Department Care Team ([facility] st Contact Info) Description 04/19/2025 9:30 AM EST Consult Bariatric Surgery - [place] [address] [facility] [address] [place] [phone] Nancy Youssef MD [address] [address] [place] [address] Health Maintenance Due Date Last Done Comments DTaP,Tdap,and Td Vaccines (1 - Tdap) 2013 Hepatitis B Vaccines (1 of 3 - 19+ 3-dose series) 2013 Cholesterol Screening (Lipid Panel) 04/29/2023 HIV Screening 04/29/2023 Hepatitis C Screening 04/29/2023 Social Influencers of Health Screening 04/29/2023 COVID-19 Vaccine ( - 2023-2 5 season) 2023 Depression Screening 03/31/2024 Influenza Vaccine (#1) 2024 HIB Vaccines Aged [...] age to complete this topic Insurance [facility] [place] [id number]
== END 2024-11-17 11:48 | disposition home or self-care (01) ==
LOC: HO.XRAY 11:47
PROVIDERS: PCP Internal Medicine Medical Oncology; Visit Provider Internal Medicine Medical Oncology
DX: M54.9 Dorsalgia, unspecified (principal); M54.32 Sciatica, left side; M54.31 Sciatica, right side
CPT/HCPCS: 72100; 72220

== ENCOUNTER → 2024-11-17 11:53 | Outpatient (BNV) | payer OTHER, SELFPAY | PROVIDERS: PCP Internal Medicine Medical Oncology; Visit Provider Radiology Diagnostic Radiology | DX: M51.360 Other intervertebral disc degeneration, lumbar region with discogenic back pain only (principal); M54.50 Low back pain, unspecified | CPT/HCPCS: 72100; 72220 ==